=== PATIENT | female | born 1995 | race Caucasian/White ===

== ENCOUNTER 2022-06-19 13:57 | Inpatient (IN) | payer OTHER ==
[~2022-06-19] VITALS: Ht 152.4 cm; Wt 65.3 kg
[2022-06-19] MEDS ORDERED: PRENATAL CAPLE1 EAC1 PO (14:52)
== END 2022-06-21 14:01 | disposition home or self-care (01) | DRG 807 ==
LOC: OBS/DEL 13:57 → OB/GYN 17:21 → LDR 17:21 → OB/GYN 20:06 → LDR 20:22 → OB/GYN 20:42
PROVIDERS: ADMIT Specialist; ATTEND Specialist
PROC: 10E0XZZ Delivery of Products of Conception, External Approach (ICD-10-PCS; principal; 2022-06-19)
PROC: 4A1HXCZ Monitoring of Products of Conception, Cardiac Rate, External Approach (ICD-10-PCS; 2022-06-19)
PROC: BY4FZZZ Ultrasonography of Third Trimester, Single Fetus (ICD-10-PCS; 2022-06-19)
DX: O36.8130 Decreased fetal movements, third trimester, not applicable or unspecified (principal); Z37.0 Single live birth; O26.843 Uterine size-date discrepancy, third trimester; Z3A.38 38 weeks gestation of pregnancy; Z20.822 Contact with and (suspected) exposure to COVID-19; O26.893 Other specified pregnancy related conditions, third trimester; Z67.91 Unspecified blood type, Rh negative

== ENCOUNTER 2023-11-22 05:00 | Inpatient (IN) | payer OTHER ==
[~2023-11-22] VITALS: Ht 165.1 cm; Wt 70.8 kg
[2023-11-22] VITALS (9 sets, daily range): BP systolic 107–117; BP diastolic 61–80; O2SAT 99
[~2023-11-22 05:00] MED LIST: PRENATAL CAPLE1 EAC1 PO
[2023-11-22] MEDS ORDERED: PRENATAL 19 TA1 EAC2 PO (06:17)
[2023-11-22 06:33] LABS: PH,URINE 6.5 (5.0-8.0); URINE APPEARANCE Clear; URINE BILIRRUBIN Negative (NEGATIVE); URINE BLOOD Negative; URINE COLOR Yellow; URINE GLUCOSE Negative (NEGATIVE); URINE KETONE Negative (NEGATIVE); URINE LEUKOCYTE Trace; URINE NITRATE Negative; URINE PROTEIN Negative (NEGATIVE)
[2023-11-22 06:35] LABS: HEMATOCRIT 35.3 % (36.0-45.00); MEAN CELL VOLUME 89.7 fL (80.00-100.00); MEAN CORPUSCULAR HEMOGLOBIN 30.6 pg (27.00-32.0); MEAN CORPUSCULAR HGB CONC 34.1 g/dl (32.0-36.0); PLATELET COUNT 251 K/uL (150-450); RED BLOOD COUNT 3.94 M/uL (4.00-6.00); RED CELL DISTRIBUTION WIDTH 15.3 % (11.5-14.5)
[2023-11-22 06:37] LABS: URINE BACTERIA 488.7 uL (0.0-1933); URINE EPITHELIAL CELLS 41.2 uL (0.0-38.8); URINE RBC 4.1 uL (0.0-20.8); URINE WBC 8.8 uL (0.0-23.2)
[2023-11-22 06:43] LABS: INR < 0.93; PARTIAL THROMBOPLASTIN TIME 26.8 SECONDS (22.0-34.0); PROTHROMBIN TIME 10.1 SECONDS (9.0-11.5)
[2023-11-22 06:54] LABS: ALBUMIN 2.5 gm/dL (3.4-5.0); BILIRUBIN TOTAL 1.22 mg/dL (0.3-1.2); CREATININE SERUM 0.43 mg/dL (0.55-1.02); GFR 173.6; GLOBULINA 3.8 G/DL (2.4-3.5); POTASSIUM 3.87 mEq/L (3.5-5.1); TOTAL PROTEIN 6.3 gm/dL (6.4-8.2)
[2023-11-22] MEDS ORDERED: OXYTOCIN 500 ML IV SCH (08:00)
[2023-11-22] MEDS ORDERED: PROMETHAZINE HCL 25 MG/ML AMPUL IV ONE (10:45)
[2023-11-22] MEDS ORDERED: MEPERIDINE HCL/PF 50 MG/ML VIAL IV ONE (10:45)
[2023-11-22] MEDS ORDERED: ERYTHROMYCIN BASE OPHT 1GM EACH TUBE OP ONE (12:15)
[2023-11-22] MEDS ORDERED: CHLORHEXIDINE GLUCONATE 120 ML BOTTLE TOP NR (12:15)
[2023-11-22] MEDS ORDERED: OXYTOCIN 1,000 ML IV SCH (12:15)
[2023-11-22] MEDS ORDERED: IBUprofen 600 MG TABLET PO SCH (20:00)
[2023-11-23] VITALS: BP 106/69
[2023-11-23 05:11] VITALS: BP 117/68
[2023-11-23 08:00] VITALS: BP 130/80
[2023-11-23 09:37] LABS: HEMATOCRIT 36.1 % (36.0-45.00); HEMOGLOBIN 12.2 g/dL (12.0-15.00); MEAN CELL VOLUME 89.1 fL (80.00-100.00); MEAN CORPUSCULAR HEMOGLOBIN 30.2 pg (27.00-32.0); MEAN CORPUSCULAR HGB CONC 33.9 g/dl (32.0-36.0); PLATELET COUNT 264 K/uL (150-450); RED BLOOD COUNT 4.05 M/uL (4.00-6.00); RED CELL DISTRIBUTION WIDTH 15.9 % (11.5-14.5)
[2023-11-23 16:00] VITALS: BP 120/73
[2023-11-24 01:33] VITALS: BP 114/74
[2023-11-24 08:02] VITALS: BP 102/63
[2023-11-24] MEDS ORDERED: FF) RHO(D) IMMUNE GLOBULIN (POM) IM ONE (10:30)
== END 2023-11-24 17:11 | disposition home or self-care (01) | DRG 807 ==
LOC: LDR 05:00 → OB/GYN 05:00
PROVIDERS: Obstetrics & Gynecology; ADMIT Specialist; ATTEND Specialist
PROC: 10E0XZZ Delivery of Products of Conception, External Approach (ICD-10-PCS; principal; 2023-11-22)
PROC: 4A1HXCZ Monitoring of Products of Conception, Cardiac Rate, External Approach (ICD-10-PCS; 2023-11-22)
PROC: 0W8NXZZ Division of Female Perineum, External Approach (ICD-10-PCS; 2023-11-22)
DX: O80 Encounter for full-term uncomplicated delivery (principal); Z37.0 Single live birth; Z3A.38 38 weeks gestation of pregnancy; Z20.822 Contact with and (suspected) exposure to COVID-19